=== PATIENT | female | born 2000 | race Caucasian/White ===

== ENCOUNTER 2025-01-10 18:31 | Emergency (ER) | payer MEDICAID ==
[~2025-01-10] VITALS: Ht 162.6 cm; Wt 58.5 kg
[2025-01-10 18:44] VITALS: BP 128/80; PULSE 99; RESP 15; O2SAT 99
[2025-01-10 19:43] LABS: LEUKOCYTE ESTERASE ,URINE NEGATIVE (Neg); NITRITES, URINE NEGATIVE (Neg); OCCULT BLOOD,URINE LARGE (Neg)
[2025-01-10 19:45] LABS: URINE HCG NEGATIVE (NEG)
--- NOTE | 2025-01-10 19:45 | Physician Documentation ---
History of Present Illness ~ Chief Complaint: Vaginal discharge Stated Complaint: VAGINAL ISSUES Time Seen by MD: 19:24 Primary Medical Doctor: DR RUIZ [facility] Patient presents to the emergency room with foul-smelling vaginal discharge since four days. She does have a recent new partner. No fevers. No abdominal pain. She does not believe she could be . Denies dysuria. Patient is not currently menstruating but does state that she does have chronic blood in her urine of undetermined cause. Last Menstrual Period: Jan 01, 2025 Medication Reconciliation Allergies: Coded Allergies: No Known Allergies (Unverified , 01/10/25) Past Medical History Past Medical History: Asthma Past Surgical History: no surgical history Last Menstrual Period: Jan 01, 2025 Alcohol Use: None Drug Use: none Lives with: Mother Review of Systems ROS All review of systems negative except as per HPI Physical Exam Vital Signs: Temperature: 96.3, Source: Temporal, Heart Rate: 99, Respiratory Rate: 15, BP: 128/80, Pulse Oximetry: 99, Weight: 58.550 Physical Exam General: Patient is awake, alert, oriented x4 in no acute distress and well appearing.~ Head: Normocephalic and atraumatic. Eyes: Conjunctival normal. EOMI. PERRL. ENT: Mucous membranes moist. Neck: Supple, trachea is midline. Chest: Clear to auscultation bilaterally without rales, rhonchi, or wheezes. Th ere is no accessory muscle use or retractions. Cardiac: RRR without murmurs, gallops, or rubs. Abd: Soft, nondistended, nontender, with normoactive bowel sounds. No guarding, rebound, or rigidity. : Minimal light yellow colored vaginal discharge. No appreciable foul odor, negative chandelier sign Progress Results/Orders Results/Orders Orders - ELÍAS XIAO MD Chlam/Gc Amp Ur (01/10/25 19:29) Completed Orders - ELÍAS XIAO MD Hcg, Ur Ql (01/10/25 19:28) Wet Prep (01/10/25 19:29) Ua W/Microscopic, Cult If Ind (01/10/25 18:50) Vital Signs 01/10/25 18:44 Temp 96.3 Pulse 99 Resp 15 B/P (MAP) 128/80 Pulse Ox 99 Laboratory Tests Test 01/10/25 18:50 Urine Specimen Description Cln catch midstream Urine Color Yellow Urine Clarity Clear Urine pH 5.5 Urine Specific [place] >=1.030 Urine Protein Negative Urine Glucose (UA) Negative Urine Ketones Trace H Urine Occult Blood Large H Urine Nitrite Negative Urine Bilirubin Negative Urine Urobilinogen 0.2 Urine Leukocyte Esterase Negative Urine RBC 10-20 Urine WBC 0-4 Urine Squamous Epithelial Cells Moderate Urine Bacteria Few Urine Mucus Many Urine Culture Indicated Not ind Volume Urine Centrifuged 10 ml Urine HCG, Qualitative Negative Urine Comment Microbiology Date/Time Source Procedure Growth Status 01/10/25 20:02 Genital Vaginal Wet Prep - Final Complete Medical Decision Making Findings Patient presents to the emergency room with vaginal discharge as per HPI. Differentials include but are not limited to bacterial vaginosis, chlamydia, gonorrhea, yeast infection therefore vaginal exam performed and wet prep sent. No clue cells but does show increased white blood cells. Negative chandelier sign. We will treat for bacterial vaginosis and empirically for STDs. ER precautions discussed Departure Disposition: HOME / SELF CARE / HOMELESS Impression: Primary Impression: Vaginal discharge Condition: Stable Discharge Instructions: Preventing Sexually Transmitted Infections, Adult Referrals: NO PRIMARY CARE PROVIDER (PCP) Prescriptions Metronidazole* (Flagyl*) 500 Mg Tablet 1 TAB PO Q12H for 7 Days, #14 TAB Prov: ELÍAS XIAO MD 01/10/25 Education Educated: Patient Educated regarding: diagnosis, treatment, need for follow up Signature Scribe Signature: No scribe Attestation: The note accurately reflects work and decisions made by me.Elías Xiao MD 01/10/25 20:53 ELÍAS XIAO MD Jan 10, 2025 19:45
[2025-01-10 19:49] LABS: UA COLLECTION TYPE CLN CATCH MIDSTREAM
[2025-01-10 19:50] LABS: MUCUS STRANDS MANY /LPF (Neg); SQUAMOUS EPITHELIAL CELL,UR MODERATE /LPF (FEW)
[2025-01-10] MEDS ORDERED: METR-159 PO (20:53)
[2025-01-10 20:58] VITALS: TEMP 96.3
[2025-01-10] MEDS: CefTRIAXone 1000mg IM Kit (w/lidocaine diluent) IM ONE (21:07)
== END 2025-01-10 21:11 | disposition home or self-care (01) ==
LOC: ER 18:32
DX: N89.8 Other specified noninflammatory disorders of vagina (principal); J45.909 Unspecified asthma, uncomplicated
CPT/HCPCS: 36415; 81001; 81025; 87210; 87491; 87591; 96372; 99284; J0696

== ENCOUNTER 2025-03-06 15:03 | Emergency (ER) | payer SELFPAY ==
[~2025-03-06] VITALS: Ht 162.6 cm; Wt 104.5 kg
[2025-03-06 15:17] VITALS: BP 110/61; PULSE 79; RESP 18; TEMP 97.9; O2SAT 99
--- NOTE | 2025-03-06 15:23 | Physician Documentation ---
History of Present Illness ~ Chief Complaint: Foreign body Stated Complaint: FOREIGN BODY Time Seen by MD: 15:21 Primary Medical Doctor: DR RUIZ [facility] 24-year-old female presents to the emergency department due to concerns for a lost tampon. Concern has been present since yesterday. She denies chills or fever, any other symptoms. Medication Reconciliation Allergies: Coded Allergies: No Known Allergies (Unverified , 03/06/25) Past Medical History Past Medical History: Asthma Past Surgical History: no surgical history Alcohol Use: None Drug Use: none Lives with: Mother Review of Systems ROS As stated above in the HPI, otherwise all systems are reviewed and negative. Physical Exam Vital Signs: Temperature: 97.9, Source: Temporal, Heart Rate: 79, Respiratory Rate: 18, BP: 110/61, Pulse Oximetry: 99, Weight: 104.550 Physical Exam General: Alert, no apparent distress. Neck: Full range of motion. Respiratory: Lungs clear, no respiratory distress. Chest: No accessory muscle use. Cardiovascular: Regular rate and rhythm, no murmurs. Gastrointestinal: Soft, nontender, nondistended. Bowels sounds present. Pelvic: Normal female genitalia. Two tampons in vault-easily removed. Extremities: Normal range of motion, no deformity. Neurologic: Oriented x4. Psychiatric: Normal mood and affect. Skin: Normal color, warm and dry. No edema, no ecchymosis. Procedures Procedures Pelvic exam for removal of two retained tampons. Tolerated well. Progress Results/Orders Results/Orders Orders - TANIA BROWN NP Pelvic Set Up (03/06/25 ) Vital Signs 03/06/25 15:17 Temp 97.9 Pulse 79 Resp 18 B/P (MAP) 110/61 Pulse Ox 99 Medical Decision Making Additional Comment 4-year-old female presented due to concerns for retained tampons. She was found to have two tampons in the vaginal vault, these were removed easily. Departure Time of Disposition: 17:48 Disposition: 01 HOME / SELF CARE / HOMELESS Impression: Primary Impression: Retained tampon Condition: Stable Discharge Instructions: Foreign Body, Vaginal Additional Instructions: Two tampons removed. Return for fever over 101 or any other concerns for infection-none seen on exam. You're 24, and should have had your first PAP at age 21. Please schedule with your PCP or [employer] provider. Referrals: NO PRIMARY CARE PROVIDER (PCP) Education Educated: Patient Educated regarding: diagnosis, treatment, prognosis, need for follow up Signature Scribe Signature: x Attestation: The note accurately reflects work and decisions made by me.Tania Green NP 03/06/25 17:50 TANIA BROWN NP Mar 06, 2025 15:22
== END 2025-03-06 18:12 | disposition home or self-care (01) ==
LOC: ER 15:04
DX: T19.2XXA Foreign body in vulva and vagina, initial encounter (principal); J45.909 Unspecified asthma, uncomplicated; W44.F9XA Other object of natural or organic material, entering into or through a natural orifice, initial encounter; Y93.89 Activity, other specified; Y92.89 Other specified places as the place of occurrence of the external cause; Y99.8 Other external cause status
CPT/HCPCS: 99284